=== PATIENT | female | born 1995 | race Caucasian/White ===

== ENCOUNTER 2016-08-28 14:11 | Outpatient (CLI) | payer SELFPAY ==
[2016-08-28 14:47] VITALS: BP 105/66
[2016-08-28 17:09] LABS: Urine Drugs of Abuse Note Disclamer
[2016-08-28 17:32] LABS: Basophils % (Auto) 0.2 % (0.0-1.8); Eosinophils % (Auto) 0.2 % (0.0-4.3); Hematocrit 30.7 % (30.3-42.9); Hemoglobin 10.2 gm/dl (10.1-14.3); Mean Corpuscular HGB Conc 33 % (30-34); Mean Corpuscular Hemoglobin 29 pg (28-32); Mean Corpuscular Volume 87 fl (79-97); Platelet Count 242 K/mm3 (140-440); Red Blood Count 3.52 M/mm3 (3.65-5.03); White Blood Count 9.9 K/mm3 (4.5-11.0)
[2016-08-28 17:37] LABS: Bilirubin,Urine NEG (Negative); Blood,Urine NEG (Negative); Ketones,Urine NEG (Negative); Leukocyte Esterase,Urine LG (Negative); Mucus,Urine FEW /HPF; Nitrite,Urine NEG (Negative); Protein,Urine <15 mg/dL mg/dL (Negative); Urobilinogen,Urine < 2.0 mg/dL (<2.0)
[2016-08-28 17:57] LABS: HIV-1 Antigen p24 Non React (Non React); HIVR-1/2 Ab Non React (Non React)
--- NOTE | 2016-08-29 09:39 | Ultrasound Report ---
OB ULTRASOUND FOLLOWUP History: well-being, dates. Technique: Transabdominal ultrasound with Doppler interrogation. Gestation: Single Position: Transverse, head to maternal right Amniotic Fluid: Normal BYRON = 16.5 cm Placenta: Fundal Placental Grade: 1 Heart Rate: 156 BPM Cervical length: Not measured cm (Normal > 3 cm) BPD: 6.8 cm = 27 w 2 d HC: 25.8 cm = 28 w 0 d AC: 23.7 cm = 28 w 0 d FL: 5.3 cm = 28 w 0 d HC/AC Ratio: 1.09 Cephalic Index: 76.6 Estimated Weight: 1156 grams Clinical age = 28 w 0 d EDC: 11/20/16 US Gest. Age = 27 w 6 d EDC: 11/21/16
== END 2016-08-28 16:57 | disposition home or self-care (01) ==
LOC: TRG 14:11
PROVIDERS: ATTEND Obstetrics & Gynecology
DX: O32.2XX0 Maternal care for transverse and oblique lie, not applicable or unspecified (principal); O47.03 False labor before 37 completed weeks of gestation, third trimester; Z3A.28 28 weeks gestation of pregnancy
CPT/HCPCS: 36415; 59025; 76816; 80307; 81001; 85025; 86592; 86706; 86762; 87806

== ENCOUNTER 2016-10-13 19:03 | Outpatient (CLI) | payer SELFPAY ==
[2016-10-13] MEDS ORDERED: LACTATED RINGERS 1,000 ML IV ONE (19:37)
[2016-10-13 20:04] LABS: Bilirubin,Urine NEG (Negative); Blood,Urine NEG (Negative); Ketones,Urine NEG (Negative); Leukocyte Esterase,Urine MOD (Negative); Nitrite,Urine NEG (Negative); Protein,Urine <15 mg/dL mg/dL (Negative); Urobilinogen,Urine < 2.0 mg/dL (<2.0)
[2016-10-13 21:34] VITALS: BP 101/65
--- NOTE | 2016-10-13 21:55 | Ultrasound Report ---
FINAL REPORT PROCEDURE: US OB LIMITED TECHNIQUE: Sonographic evaluation for breathing, movement, tone, and amniotic fluid volume was performed. CPT 81322 HISTORY: no care,decreased movement COMPARISON: No prior studies are available for comparison. FINDINGS: Single live intrauterine is seen in cephalic presentation. heart rate is 130 beats per minute. BYRON is 19.1. Amniotic fluid volume: Normal-score 2. At least one vertical pocket \T\gt; 2 cm or more in vertical axis. breathing: Not seen-score 0. movement: Normal-score 2. tone: Normal. Score: 6 of 8. IMPRESSION: Biophysical profile score is 6/8.
--- NOTE | 2016-10-13 22:06 | Ultrasound Report ---
FINAL REPORT PROCEDURE: US OB BPP WO NON-STRESS TECHNIQUE: Sonographic evaluation for breathing, movement, tone, and amniotic fluid volume was performed. CPT 29848 HISTORY: no care, decreased movement. Estimated age 34 weeks 4 days. Estimated delivery 11/20/2016. COMPARISON: 10/13/2016 20:43 p.m. FINDINGS: Amniotic fluid volume: Normal-score 2. At least one vertical pocket \T\gt; 2 cm or more in vertical axis. BYRON 19.1. breathin movement: Normal-score 2. tone: Normal-score 2. Score: 8 of 8. heart rate 126 beats per minute IMPRESSION: Biophysical profile score of 6 out of 8
== END 2016-10-13 22:04 | disposition home or self-care (01) ==
LOC: TRG 19:03
PROVIDERS: ATTEND Obstetrics & Gynecology
DX: O36.8130 Decreased fetal movements, third trimester, not applicable or unspecified (principal); O47.03 False labor before 37 completed weeks of gestation, third trimester; Z3A.34 34 weeks gestation of pregnancy
CPT/HCPCS: 59025; 76815; 76819; 81001

== ENCOUNTER 2016-10-28 11:48 | Outpatient (CLI) | payer SELFPAY ==
[2016-10-28 12:17] VITALS: BP 96/49
[2016-10-28 12:53] LABS: Bacteria,Urine 1+ /HPF (Negative); Bilirubin,Urine NEG (Negative); Blood,Urine MOD (Negative); Ketones,Urine TR mg/dL (Negative); Leukocyte Esterase,Urine MOD (Negative); Nitrite,Urine NEG (Negative); Protein,Urine <15 mg/dL mg/dL (Negative); Urobilinogen,Urine < 2.0 mg/dL (<2.0)
[2016-10-28] MEDS ORDERED: LACTATED RINGERS 1,000 ML IV SCH (13:00)
== END 2016-10-28 16:03 | disposition home or self-care (01) ==
LOC: TRG 11:48 → LD 12:28 → TRG 16:03
PROVIDERS: ATTEND Obstetrics & Gynecology Gynecology
DX: O47.1 False labor at or after 37 completed weeks of gestation (principal); Z3A.37 37 weeks gestation of pregnancy
CPT/HCPCS: 59025; 81001; 96360; J7120